=== PATIENT | female | born 1995 ===

== ENCOUNTER 2020-10-26 16:23 | Inpatient (IN) ==
[2020-10-26] MEDS ORDERED: MEPERIDINE 50 MG/1 ML VIAL IV PRN (16:49)
[2020-10-26] MEDS ORDERED: ONDANSETRON 4 MG/2 ML VIAL IV PRN ×2 (16:49→21:39)
[2020-10-26] MEDS ORDERED: BUTORPHANOL 2 MG/ML VIAL IV PRN (16:49)
[2020-10-26] MEDS ORDERED: AMPICILLIN INJ 2,000 MG in SODIUM CHLORIDE 0.9% 100 ML IV ONE (17:06)
[2020-10-26] MEDS ORDERED: CITRIC ACID/SODIUM CITRATE 30 ML UDCUP ONE (17:14)
[2020-10-26] MEDS ORDERED: FAMOTIDINE 20 MG/2 ML VIAL IV ONE ×2 (17:14→17:17)
[2020-10-26] MEDS ORDERED: fentaNYL 2 MCG/ROPIV 0.2% EPID 100 ML EPIDURAL ONE (17:14)
[2020-10-26] MEDS ORDERED: PROMETHAZINE 25 MG/1 ML VIAL IM ONE (17:17)
[2020-10-26] MEDS ORDERED: hydrOXYzine HCL 25 MG/1 ML VIAL IM PRN (17:17)
[2020-10-26] MEDS ORDERED: ePHEDrine 50 MG/ML VIAL IV PRN (17:17)
[2020-10-26] MEDS ORDERED: ONDANSETRON 4 MG/2 ML VIAL IV ONE (17:17)
[2020-10-26] MEDS ORDERED: diphenhydrAMINE 50 MG/1 ML VIAL IV PRN ×2 (17:17)
[2020-10-26] MEDS ORDERED: NALOXONE 0.4 MG/ML VIAL IV PRN (17:17)
[2020-10-26] MEDS ORDERED: CITRIC ACID/SODIUM CITRATE 30 ML UDCUP PO ONE (17:17)
[2020-10-26] MEDS: LACTATED RINGERS 1,000 ML IV SCH ×3 (17:20→19:53)
[2020-10-26] MEDS ORDERED: fentaNYL 2 MCG/ROPIV 0.2% EPID 100 ML EPIDURAL SCH (17:30)
[2020-10-26 17:39] LABS: Basophils # 0.1 10*3/uL (0.0-0.2); Basophils % 0.4 % (0.0-0.8); Eosinophils # 0.1 10*3/uL (0.0-0.87); Eosinophils % 0.7 % (0.00-10.9); Hematocrit 27.1 VOL% (35.7-47.0); Hemoglobin 7.3 GM/DL (12.0-16.0); Immature Granulocytes % 0.8 %; Immature Granulocytes Absolute 0.11 #; Lymphocytes # 1.8 10*3/uL (1.4-4.0); Lymphocytes % 12.8 % (21.3-54.2); Mean Corpuscular HGB Conc 26.9 GM/DL (32-36); Monocytes % 6.4 % (1.7-12.7); Neutrophils % 78.9 % (38.7-73.9); Platelet Count 339 T/CUMM (130-400); Red Cell Distribution Width 23.9 % (9.3-17.3); White Blood Count 13.8 T/CUMM (4-12)
[2020-10-26 17:41] LABS: Albumin 2.9 G/DL (3.4-5.0); Bilirubin,Total 0.6 MG/DL (0.2-1.0); Osmolality,Calculated 267.1 MOS/KG (273-304); Potassium 3.4 MMOL/L (3.5-5.1); Total Protein 7.7 G/DL (6.4-8.2)
[2020-10-26 17:54] LABS: Anisocytosis 1+; Elliptocytes 1+; Hypochromasia 1+; Polychromasia Few; Schistocytes Few
[2020-10-26 17:55] LABS: Platelet Estimate Adequate
[2020-10-26] MEDS: OXYTOCIN/LR 20 UNIT/1,000 ML BAG IV SCH ×2 (19:27→22:14)
[2020-10-26 21:19] LABS: Cord Arterial Blood HCO3 17.2 MMOL/L
[2020-10-26 21:22] LABS: Cord Venous Blood HCO3 18.3 MMOL/L; Cord Venous Blood PCO2 41.9 MMHG; Cord Venous Blood PO2 22.9
[2020-10-26] MEDS ORDERED: ACETAMINOPHEN 500 MG TABLET PO PRN (21:39)
[2020-10-26] MEDS ORDERED: MAGNESIUM HYDROXIDE SUSP 30 ML UDCUP PO PRN (21:39)
[2020-10-26] MEDS ORDERED: BISACODYL 10 MG SUPP RECTAL PRN (21:39)
[2020-10-26] MEDS ORDERED: LACTATED RINGERS 1,000 ML IV SCH (22:00)
[2020-10-27] MEDS: IBUPROFEN 800 MG TABLET PO PRN ×2 (01:16→23:29)
[2020-10-27] MEDS ORDERED: BENZOCAINE 20%/MENTHOL 0.5% SPRAY 56 GM CAN TOP PRN (01:36)
[2020-10-27 05:28] LABS: Basophils # 0.1 10*3/uL (0.0-0.2); Basophils % 0.4 % (0.0-0.8); Eosinophils # 0.2 10*3/uL (0.0-0.87); Eosinophils % 1.3 % (0.00-10.9); Hematocrit 21.8 VOL% (35.7-47.0); Immature Granulocytes % 0.5 %; Immature Granulocytes Absolute 0.07 #; Lymphocytes # 2.3 10*3/uL (1.4-4.0); Lymphocytes % 17.3 % (21.3-54.2); Mean Corpuscular HGB Conc 28.4 GM/DL (32-36); Mean Corpuscular Volume 60.2 FL (87-102); Monocytes % 6.3 % (1.7-12.7); Neutrophils % 74.2 % (38.7-73.9); Platelet Count 278 T/CUMM (130-400); Red Blood Count 3.62 MC/CUMM (3.8-5.5); Red Cell Distribution Width 23.4 % (9.3-17.3); White Blood Count 13.2 T/CUMM (4-12)
[2020-10-27 05:35] LABS: Hemoglobin 6.2 GM/DL (12.0-16.0)
[2020-10-27] MEDS ORDERED: metroNIDAZOLE 500 MG TABLET PO ONE (05:44)
[2020-10-27 06:26] LABS: Hypochromasia 1+; Microcytosis 2+; Ovalocytes Few; Polychromasia Slight; Tear Drop Cells Slight
[2020-10-27 06:27] LABS: Platelet Estimate Normal
[2020-10-27] MEDS: POTASSIUM CHLORIDE 10 MEQ TABLET PO SCH (08:34)
[2020-10-27] MEDS: IRON (CARBONYL)/VIT C/B12/FA TABLET PO SCH (08:34)
[2020-10-27] MEDS: DOCUSATE SODIUM 100 MG CAPSULE PO SCH ×2 (08:35→20:37)
[2020-10-27] MEDS: MULTIVITAMIN (PRENATAL) TABLET PO SCH (08:35)
[2020-10-28 08:29] VITALS: BP 136/78
[2020-10-28] MEDS: MULTIVITAMIN (PRENATAL) TABLET PO SCH (09:33)
[2020-10-28] MEDS: DOCUSATE SODIUM 100 MG CAPSULE PO SCH (09:33)
[2020-10-28] MEDS: IRON (CARBONYL)/VIT C/B12/FA TABLET PO SCH (09:33)
[2020-10-28] MEDS: POTASSIUM CHLORIDE 10 MEQ TABLET PO SCH (09:33)
== END 2020-10-28 13:25 | disposition home or self-care (01) | DRG 560 ==
LOC: N.LDOUT 16:23 → N.LD 16:31 → N.OB 10-27 01:00
PROVIDERS: ADMIT Obstetrics & Gynecology; ATTEND Obstetrics & Gynecology